=== PATIENT | male | born 1995 | race Caucasian/White ===

== ENCOUNTER 2016-12-25 18:35 | Emergency (ER) | payer BC ==
[2016-12-25 18:43] VITALS: RESP 16; TEMP 98.6
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
[2016-12-25] MEDS ORDERED: LET GEL TOPICAL 1 EA SYR TP ONE ×2 (19:21→19:25)
[2016-12-25] MEDS ORDERED: OXYCODONE/APAP 5/325MG PREPACK#4 BTL TAKEHOME ONE (22:13)
[2016-12-25] MEDS ORDERED: OXYCODONE/APAP 5/325 TAB PO ONE (22:13)
[2016-12-25] MEDS ORDERED: AMOXICILLIN/CLAVULANATE POT 875/125 MG TAB PO ONE (22:19)
[2016-12-25 23:06] VITALS: BP 117/70; PULSE 75; O2SAT 94
== END 2016-12-25 23:00 | disposition home or self-care (01) ==
PROC: 0CQ0XZZ Repair Upper Lip, External Approach (ICD-10-PCS; principal; 2016-12-25)
PROC: 0HQ1XZZ Repair Face Skin, External Approach (ICD-10-PCS; 2016-12-25)
DX: S02.40DA Maxillary fracture, left side, initial encounter for closed fracture (principal); S01.511A Laceration without foreign body of lip, initial encounter; S01.112A Laceration without foreign body of left eyelid and periocular area, initial encounter; S40.212A Abrasion of left shoulder, initial encounter; S70.212A Abrasion, left hip, initial encounter; S80.212A Abrasion, left knee, initial encounter; S50.312A Abrasion of left elbow, initial encounter; V17.4XXA Pedal cycle driver injured in collision with fixed or stationary object in traffic accident, initial encounter; Y92.410 Unspecified street and highway as the place of occurrence of the external cause; Y99.8 Other external cause status; Y93.55 Activity, bike riding
CPT/HCPCS: 96374

== ENCOUNTER 2017-01-08 22:36 | Emergency (ER) | payer BC ==
[2017-01-08 22:40] VITALS: RESP 16
[2017-01-08] MEDS ORDERED: LET GEL TOPICAL 1 EA SYR TP ONE (22:54)
[2017-01-08] MEDS ORDERED: ONDANSETRON DISINTEGRATING 4 MG TAB PO ONE (22:54)
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
[2017-01-08] MEDS ORDERED: HYDROCOD/APAP 5/325 PREPACK#6 BTL TAKEHOME ONE (22:55)
[2017-01-08] MEDS ORDERED: CEPHALEXIN 500MG PREPACK#4 BTL TAKEHOME ONE (22:55)
[2017-01-08] MEDS ORDERED: OXYCODONE/APAP 5/325 TAB PO ONE (23:08)
[2017-01-08] MEDS ORDERED: ONDANSETRON DISINTEGRATING 4 MG TAB ONE (23:15)
[2017-01-08 23:54] VITALS: TEMP 97.5
[2017-01-08 23:59] VITALS: BP 112/70; PULSE 68; O2SAT 96
== END 2017-01-08 23:59 | disposition home or self-care (01) ==
DX: S70.312A Abrasion, left thigh, initial encounter (principal); V19.60XA Unspecified pedal cyclist injured in collision with unspecified motor vehicles in traffic accident, initial encounter

== ENCOUNTER 2017-05-06 20:00 | Emergency (ER) | payer BC ==
[2017-05-06 20:05] VITALS: RESP 16; TEMP 97.9
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
[2017-05-06] MEDS ORDERED: CEFAZOLIN 330 MG/ML IM SYRINGE IM ONE (21:00)
[2017-05-06 23:01] VITALS: BP 115/64; PULSE 75; O2SAT 98
== END 2017-05-06 22:30 | disposition home or self-care (01) ==
PROC: 0HQFXZZ Repair Right Hand Skin, External Approach (ICD-10-PCS; principal; 2017-05-06)
DX: S62.646B Nondisplaced fracture of proximal phalanx of right little finger, initial encounter for open fracture (principal); S61.216A Laceration without foreign body of right little finger without damage to nail, initial encounter; W26.0XXA Contact with knife, initial encounter